=== PATIENT | male | born 1970 | race Caucasian/White ===

== ENCOUNTER 2020-04-17 10:14 | Emergency (ER) | payer BC, SELFPAY ==
[2020-04-17 10:23] VITALS: BP 151/94; PULSE 114; RESP 18; TEMP 38.1; O2SAT 98
--- NOTE | 2020-04-17 10:59 | ED.URI ---
HPI - URI/Sore Throat General Chief Complaint: Nausea/Vomiting/Diarrhea Stated Complaint: Stomach Pain Time Seen by Provider: 04/17/20 10:59 Source: patient and RN notes reviewed Mode of arrival: ambulatory Limitations: no limitations History of Present Illness HPI Narrative: 49 year old male who presents to [facility] care with complaints of abdominal cramping, diarrhea,chills, fever up to 101F, body aches cough for the past 3-4 days. He states that he has some nausea also today with stated known exposure to COVID with negative test this past Thursday at [facility]. Patient states that his work needs a note for him to return to work but I explained to patient since he is having symptoms I would not release him and that he needs to be tested again. Patient has clear lungs to auscultation with no tachypnea or any accessory muscle use, SAO2 99% on room air. States abdominal cramping only related to times with diarrhea, denies any pain to right lower quadrant with negative McBurney point tenderness. MD elicited complaint: fever, cough and other (headache,fatigue, bodyaches,fever, chills,and nausea and diarrhea) Pertinent past history: other (known exposure to COVID with negative test stated on past Thursday) Onset (ago): day(s) (3-4) Consistency: constant Severity: moderate (generalized myalgia) Pain scale (0-10): 3 Description of mucous: clear Able to tolerate fluids by mouth: Yes Exacerbating factors: other (eating) Relieving factors: rest and other (tylenol helpa fever and aching) Context: sick contacts Associated symptoms: fever, chills, myalgias, cough, nausea and diarrhea Treatments prior to arrival: acetaminophen and other (Nyquil) Related Data Allergies Allergy/AdvReac Type Severity Reaction Status Date / Time No Known Allergies Allergy Verified 04/17/20 10:42 Review of Systems Review of Systems: Narrative: CONSTITUTIONAL: Positive fever, positive chills, or sweats. EYES: Denies visual changes, redness, or discharge. ENT: Denies rhinorrhea, congestion, sore throat, or otalgia. CARDIOVASCULAR: Denies chest pain, palpitations, or edema. RESPIRATORY:positive for cough denies dyspnea. GASTROINTESTINAL: Denies abdominal pain, positive for nausea, and diarrhea denies any vomiting. GENITOURINARY: Denies dysuria or hematuria. SKIN: Denies rash or itching. MUSCULOSKELETAL: Denies back pain, joint pain, positive body aches NEUROLOGIC: Denies headache, numbness, or weakness. PSYCHIATRIC: Denies anxiety or depression. All systems reviewed & are unremarkable except as noted in HPI and below PMFSH Past Medical History Medical History (Updated 04/20/20 @ 12:04 by Rama Calhoun NP) Hx of left flank pain Surgical History Surgical History (Updated 04/20/20 @ 12:05 by Rama Calhoun NP) H/O bilateral inguinal hernia repair Social History Social History (Updated 04/20/20 @ 12:05 by Rama Calhoun NP) Smoking status: Current some day smoker Alcohol intake: current Substance use: unknown Living arrangements: alone Gender identity (if verbalized by the patient): Male Comments At time of signature, agree with nursing past medical, surgical, social history. There is no relevant family history pertinent to the presenting complaint Exam Narrative: Exam Narrative: GENERAL: ill-appearing, well-nourished, and in no acute distress. HEAD: Normocephalic, atraumatic. EYES: PERRLA and EOMI. ENT: Nares red, clear rhinorrhea no epistaxis. Mucous membranes moist.TM's normal with good light reflex. throat pink with no lesions or exudates, no tonsil swelling, post nasal drainage noted NECK: Supple.no lymphadenopathy, CHEST: Clear to auscultation. No respiratory distress.SAO2 98% on room air HEART: Regular rate and rhythm. No murmur heard. Normal peripheral pulses. ABDOMEN: Soft, nontender, nondistended, normal active bowel sounds, crampy abdominal discomfort with diarrhea, negative McBurney point tenderness. EXTREMITIES: Normal range of motion.
== END 2020-04-17 11:35 | disposition home or self-care (01) ==
PROVIDERS: Emergency Provider Registered Nurse
DX: R11.2 Nausea with vomiting, unspecified (principal); R19.7 Diarrhea, unspecified; Z20.828 Contact with and (suspected) exposure to other viral communicable diseases
CPT/HCPCS: 87804; 99213; G0463

== ENCOUNTER 2021-06-16 12:26 | Emergency (ER) | payer BC, SELFPAY ==
[2021-06-16 12:35] VITALS: BP 144/94; PULSE 106; RESP 14; TEMP 36.8; O2SAT 98
--- NOTE | 2021-06-16 14:26 | ED.URI ---
HPI - URI/Sore Throat General Chief Complaint: Upper Respiratory Infection Stated Complaint: achey Time Seen by Provider: 06/16/21 14:27 Source: patient, RN notes reviewed and old records reviewed Mode of arrival: ambulatory Limitations: no limitations History of Present Illness HPI Narrative: 50-year-old male who presents to [facility] with complaints of body aches, fatigue, lower backache, chills, thirst, dry cough and some postnasal drainage which just started yesterday. Patient has been taking DayQuil for his symptoms.Patient denies any known fevers or any sore throat or ear pain. He reports that he has not had any COVID or influenza vaccinations. MD elicited complaint: cough Related Data Allergies Allergy/AdvReac Type Severity Reaction Status Date / Time No Known Allergies Allergy Verified 06/16/21 12:49 Review of Systems Review of Systems: CONSTITUTIONAL: Denies known fever, positive for chills, or sweats. EYES: Denies visual changes, redness, or discharge. ENT: Positive for rhinorrhea, congestion, no sore throat, or otalgia. CARDIOVASCULAR: Denies chest pain, palpitations, or edema. RESPIRATORY:Positive cough no dyspnea. GASTROINTESTINAL: Denies abdominal pain, nausea, vomiting, or diarrhea. GENITOURINARY: Denies dysuria or hematuria. SKIN: Denies rash or itching. MUSCULOSKELETAL: Positive for back pain, joint pain, positive for body aches and fatigue NEUROLOGIC: Denies headache, numbness, or weakness. PSYCHIATRIC: Denies anxiety or depression. All systems reviewed & are unremarkable except as noted in HPI and below PMFSH Past Medical History Medical History Hx of left flank pain Surgical History Surgical History H/O bilateral inguinal hernia repair Social History Social History Smoking status: Current some day smoker Alcohol intake: current Substance use: unknown Gender identity (if verbalized by the patient): Male Comments At time of signature, agree with nursing past medical, surgical, social and family history. There is no relevant family history pertinent to the presenting complaint Exam Narrative: GENERAL: Well-appearing, well-nourished, and in no acute distress. HEAD: Normocephalic, atraumatic. EYES: PERRLA and EOMI. ENT: Nares red with clear rhinorrhea no epistaxis. Mucous membranes moist.TM's normal with good light reflex, throat red iwth no lesions or exudates, tonsils large and red,post nasal drainage noted NECK: Supple.no lymphadenopathy CHEST: Clear to auscultation. No respiratory distress.cough SAO2 98% on room air HEART: Regular rate and rhythm. No murmur heard. Normal peripheral pulses. ABDOMEN: Soft, nontender, nondistended, normal active bowel sounds. EXTREMITIES: Normal range of motion. No edema. SKIN: Warm, dry, no rash. NEURO: No focal deficits. Alert and oriented x3. Course Course Level of Care: Express Care Visit Vital Signs Vital signs: Vital Signs Temperature 36.8 C 06/16/21 12:35 Pulse Rate 106 H 06/16/21 12:35 Respiratory Rate 14 06/16/21 12:35 Blood Pressure 144/94 H 06/16/21 12:35 Pulse Oximetry 98 06/16/21 12:35 Temperature 36.8 C 06/16/21 12:35 Pulse Rate 106 H 06/16/21 12:35 Respiratory Rate 14 06/16/21 12:35 Blood Pressure 144/94 H 06/16/21 12:35 Pulse Oximetry 98 06/16/21 12:35 MDM - URI/Sore Throat Differential Diagnosis Differential diagnosis: Likely upper respiratory infection, sinusitis, viral infection, pharyngitis and other (screen for COVID) Medical Records Attestation: I reviewed the patient's medical records. Lab Data Attestation: I reviewed the patient's lab results. Lab results narrative: Influenza A negative, influenza B negative, strep screen negative, PCR COVID drive thru ordered and pending.. Labs: Influenza A Screen Negative
== END 2021-06-16 14:56 | disposition home or self-care (01) ==
PROVIDERS: Emergency Provider Registered Nurse
DX: J06.9 Acute upper respiratory infection, unspecified (principal); Z20.822 Contact with and (suspected) exposure to COVID-19; F17.200 Nicotine dependence, unspecified, uncomplicated
CPT/HCPCS: 87081; 87804; 87880; 99213; G0463

== ENCOUNTER → 2021-06-18 02:43 | Outpatient (CLI) | payer BC, SELFPAY ==
[2021-06-19 14:39] LABS: SARS-CoV-2 RNA PCR Positive
== END ==
PROVIDERS: Visit Provider Registered Nurse
DX: U07.1 COVID-19 (principal)
CPT/HCPCS: C9803; U0003; U0005

== ENCOUNTER 2023-05-15 13:50 | Emergency (ER) | payer BC, SELFPAY ==
--- NOTE | 2023-05-15 13:56 | ED.EYEPROB ---
HPI - Eye Problem General Chief complaint: Eye Problems Stated complaint: Eye Problem Time Seen by Provider: 05/15/23 14:00 Source: patient Mode of arrival: ambulatory Limitations: no limitations History of Present Illness HPI Narrative: Travis is a 52-year-old male patient presenting to the clinic today with complaints of possible pinkeye bilaterally. He reports symptoms started 1-2 days ago. Reports that his whole family has had pinkeye. Related Data Allergies Allergy/AdvReac Type Severity Reaction Status Date / Time No Known Allergies Allergy Verified 06/16/21 12:49 Review of Systems Review of Systems: Pertinent positives per HPI. Patient denies any fever, chills, rash, headache, visual changes, dizziness, cough, runny nose, sore throat, shortness of breath, chest pain, palpitations, nausea, vomiting, diarrhea, constipation, abdominal pain, or any urinary issues. PMFSH Past Medical History Medical History Hx of left flank pain Surgical History Surgical History H/O bilateral inguinal hernia repair Social History Social History Smoking status: Current some day smoker Alcohol intake: current Substance use: unknown Living arrangements: alone Gender identity (if verbalized by the patient): Male Comments At the time of my signature, I reviewed and agree with the nursing past medical, surgical, social, and family history. There is no relevant family history pertinent to the patient complaint. Exam Narrative: General: Well-developed, well nourished, in no apparent distress Head: Normocephalic, atraumatic Eyes: Pupils equally round and reactive to light bilaterally, EOM intact, bilateral sclera and conjunctive injected with watery drainage. Reports that his he has had green and yellow mucopurulent discharge. Ears: TMs intact and clear, ear canals clear, no drainage, grossly hearing normal. Nose: Nares patent, no discharge, no inflammation, no sinus tenderness. Mouth: Oropharynx without lesions or masses, good dentition, MMM. Neck: Supple, trachea midline, no enlargement of anterior or posterior cervical nodes, no thyroid masses or goiter palpable. Cardio: Regular rate and rhythm, s1 and s2 normal, no murmur appreciated. Resp: Clear to auscultation bilaterally anteriorly and posteriorly, no rhonchi, rales, wheezing or rubs Course Course Emergency Course: Portions of this record may have been created with voice recognition software. Level of Care: Express Care Visit Vital Signs Vital signs: Vital signs reviewed MDM - Eye Problem MDM Narrative Medical decision making narrative: At the time of visit patient is resting comfortably on the exam table. I suspect patient has bilateral conjunctivitis. Prescription for ofloxacin eyedrops was sent to pharmacy and supportive measures were discussed with the patient he voiced understanding discharge instructions agrees to treatment plan. Differential Diagnosis Differential diagnosis: Likely corneal abrasion, conjunctivitis, acute iritis, hyphema, periorbital cellulitis, subconjunctival hemorrhage, glaucoma, corneal ulcer and ruptured globe Discharge Plan Discharge Clinical Impression: Bilateral conjunctivitis Patient Disposition: Home, Self-Care Condition: Stable Instructions: Antibiotic Form, Conjunctivitis (ED) Additional Instructions: Conjunctivitis is considered contagious for 24 hours while on the antibiotic. Practice good hand washing techniques Avoid touching eyes Instill eyedrops as prescribed May use warm moist washcloth to help remove eye discharge If eyes are matted shut-do not pry eyes open-use a warm moist cloth to loosen matting and wipe matter away from eye May take Tylenol/Motrin as needed for pain or fever May take Benadryl as ne
[2023-05-15 13:57] VITALS: BP 168/111; PULSE 82; RESP 16; TEMP 36.7; O2SAT 97
== END 2023-05-15 14:24 | disposition home or self-care (01) ==
PROVIDERS: Emergency Provider Nurse Practitioner Family
DX: H10.9 Unspecified conjunctivitis (principal); F17.200 Nicotine dependence, unspecified, uncomplicated
CPT/HCPCS: 99213; G0463